=== PATIENT | male | born 1990 | race Caucasian/White ===

== ENCOUNTER 2017-04-14 06:35 | Emergency (ER) | payer SELFPAY ==
[2017-04-14 06:42] VITALS: RESP 18; O2SAT 100
[2017-04-14 08:08] LABS: BASO # 0.1 K/uL (0.0-0.2); BASO % 1.4 % (0.0-2.0); EOS # 0.1 K/uL (0.0-0.7); EOS % 3.6 % (0.0-4.0); HEMOGLOBIN 14.6 g/dL (12.0-18.0); LYMPH # 1.1 K/uL (1.0-4.3); LYMPH % 26.8 % (20.0-40.0); MEAN CELL VOLUME 94.6 fL (80.0-94.0); MEAN CORPUSCULAR HEMOGLOBIN 33.5 pg (27.0-31.0); MEAN CORPUSCULAR HGB CONC 35.4 g/dL (33.0-37.0); MONO # 0.3 K/uL (0.0-0.8); MONO % 6.7 % (0.0-10.0); NEUT # 2.5 K/uL (1.8-7.0); NEUT % 61.5 % (50.0-75.0); NRBC % 0.2 % (0.0-2.0); RBC 4.34 Mil/uL (4.40-5.90); RED CELL DISTRIBUTION WIDTH 12.8 % (11.5-14.5); WHITE BLOOD COUNT 4.1 K/uL (4.8-10.8)
[2017-04-14 08:17] LABS: URINE BILIRUBIN NEGATIVE (NEGATIVE); URINE BLOOD NEGATIVE (NEGATIVE); URINE CLARITY Clear (Clear); URINE COLOR Straw (YELLOW); URINE GLUCOSE (UA) NORMAL (Normal); URINE LEUKOCYTE ESTERASE NEG Leu/uL (Negative); URINE NITRATE NEGATIVE (NEGATIVE); URINE PROTEIN NEGATIVE (NEGATIVE); URINE UROBILINOGEN NORMAL mg/dL (0.2-1.0)
[2017-04-14 08:26] LABS: PARTIAL THROMBOPLASTIN TIME 29 SECONDS (21-34); PROTHROMBIN TIME 11.2 SECONDS (9.7-12.2)
[2017-04-14 08:28] LABS: D DIMER < 200 ng/mlDDU (0-243)
[2017-04-14 08:35] LABS: BARBITURATES, UR NEGATIVE (NEGATIVE); BENZODIAZEPINES, UR NEGATIVE (NEGATIVE); OPIATES, UR NEGATIVE (NEGATIVE); PHENCYCLIDINE, UR NEGATIVE (NEGATIVE)
[2017-04-14 08:42] LABS: ALB/GLOB RATIO 1.5 (1.0-2.1); ALBUMIN 4.2 g/dL (3.5-5.0); ALT/SGPT 31 U/L (21-72); AST/SGOT 36 U/L (17-59); BLOOD UREA NITROGEN 11 mg/dL (9-20); CALCIUM 9.8 mg/dl (8.6-10.4); GFR AFRICAN-AMERICAN > 60; GFR NON-AFRICAN AMERICAN > 60
--- NOTE | 2017-04-14 08:52 | C.PDOC ---
History Of Present Illness 26 y/o male brought in to the ED by a friend for complaint of chest pain, onset this morning. Also complaining of panic, anxiety, circum-oral paresthesia, and bilateral hand paresthesia. Reports he has been working overnight and very long hours. Patient also has been smoking a new non-filtered strong cigarette. PMD: none Time Seen by Provider: 04/14/17 07:02 Chief Complaint (Nursing): Chest Pain History Per: Patient History/Exam Limitations: no limitations Onset/Duration Of Symptoms: Hrs Current Symptoms Are (Timing): Still Present Past Medical History Reviewed: Historical Data, Nursing Documentation, Vital Signs Vital Signs: Last Vital Signs Temp 98.5 F 04/14/17 09:18 Pulse 68 04/14/17 09:18 Resp 18 04/14/17 09:18 BP 106/68 04/14/17 09:18 Pulse Ox 100 04/14/17 11:58 - Medical History PMH: No Chronic Diseases Surgical History: No Surg Hx Family History: States: No Known Family Hx - Social History Hx Tobacco Use: Yes Hx Alcohol Use: Yes Hx Substance Use: No - Immunization History Hx Tetanus Toxoid Vaccination: No Hx Influenza Vaccination: No Hx Pneumococcal Vaccination: No Review Of Systems Except As Marked, All Systems Reviewed And Found Negative. Constitutional: Negative for: Fever Cardiovascular: Positive for: Chest Pain Gastrointestinal: Negative for: Vomiting, Diarrhea Neurological: Positive for: Other (paresthesias to bilateral hands and around lips). Negative for: Weakness, Dizziness Psych: Positive for: Anxiety, Other (panic attack) Physical Exam - Physical Exam Appears: No Acute Distress, Other (Appears anxious, hyperventilating) Skin: Normal Color, Warm, Dry Head: Atraumatic, Normacephalic Eye(s): bilateral: Normal Inspection, PERRL, EOMI Oral Mucosa: Moist Neck: Normal, Normal ROM, Supple Chest: Symmetrical, No Tenderness Cardiovascular: Rhythm Regular, No Murmur Respiratory: Normal Breath Sounds, No Accessory Muscle Use Gastrointestinal/Abdominal: Normal Exam, Soft, No Tenderness Back: Normal Inspection, No Vertebral Tenderness Extremity: Bilateral: Atraumatic, Normal Color And Temperature, Normal ROM Neurological/Psych: Oriented x3, Normal Speech ED Course And Treatment - Laboratory Results Result Diagrams: 04/14/17 08:01 04/14/17 08:01 Lab Interpretation: Normal (trop/d-dimer neg. UA /UDS neg.) ECG: Interpreted By Me ECG Rhythm: Sinus Rhythm (79) O2 Sat by Pulse Oximetry: 100 (RA) Pulse Ox Interpretation: Normal - Radiology CXR: Interpreted by Me CXR Interpretation: Yes: No Acute Disease Progress Note: asa, Xanax PO Reevaluation Time: 09:05 Reassessment Condition: Improved (anxiety and panic relieved, napping feels MUCH better) Medical Decision Making Medical Decision Making: Clinical Impression: anxiety panic provoked by poor sleep, high stress job, and new very strong unfiltered [place]ive[place] cigarettes he tried for the first time. Time: 7:25 Initial Plan: * Labs * Chest x-ray * EKG * Xanax 0.25 mg PO * Reevaluation U-tox neg. Plan is for outpatient f/u. Stable for d/c home. Disposition Doctor Will See Patient In The: Office Counseled Patient/Family Regarding: Studies Performed, Diagnosis - Disposition Referrals: [facility] [Outside] [facility] [Outside] Non [facility] Provider, [Primary Care Provider] - Disposition: HOME/ ROUTINE Disposition Time: 09:06 Condition: GOOD Additional Instructions: sleep and eat well Avoid excessive stress Dont smoke those new Divehi unfiltered cigarettes Complete Cardiac evaluation is NORMAL today. Follow-up with our outpatient Clinics as needed. Instructions: Anxiety, Adult (DC) Forms: [facility] (Uzbek) - Clinical Impression Clinical Impression: Panic anxiety syndrome - Scribe Statement The provider has reviewed the documentation as recorded by the Susan Villanueva Provider Attestation: All medical record entries made by the Rominaibjeanne were at my direction and personally dictated by me. I have reviewed the chart and agree that the record accurately reflects my personal performance of the history, physical exam, medical decision making, and the department course for this patient. I have also personally directed, reviewed, and agree with the discharge instructions and disposition.
[2017-04-14 08:54] LABS: B-TYPE NATRIURETIC PEPTIDE < 11.1 pg/mL (0-450)
--- NOTE | 2017-04-14 09:00 | RAD ---
Chest x-ray single frontal view History: Shortness of breath. Comparison: None available. Findings: No focal infiltrate or effusion. Heart size within normal limits. Impression: No focal infiltrate or effusion.
[2017-04-14 09:22] VITALS: BP 106/68; PULSE 68; TEMP 98.5
--- NOTE | 2017-04-16 12:48 | CARD ---
APPROVED REPORT EKG Measurement Heart [id number] <Conclusion> Normal sinus rhythm Incomplete right bundle branch block Borderline ECG
== END 2017-04-14 09:22 | disposition home or self-care (01) ==
LOC: C.ER 06:35 → SUPCPDRO 06:35 → C.ER 09:22
DX: F41.0 Panic disorder [episodic paroxysmal anxiety] (principal)
CPT/HCPCS: 71045; 80053; 81001; 83880; 84484; 85025; 85378; 85610; 85730; 93005; 99285; G0480